=== PATIENT | female | born 1995 | race African-American/Black ===

== ENCOUNTER 2017-04-25 14:45 | Emergency (ER) | payer BC ==
[2017-04-25 14:46] VITALS: BP 145/65; PULSE 107; RESP 18; TEMP 98.3; O2SAT 99
--- NOTE | 2017-04-25 17:08 | PD ---
HPI Chief Complaint: Cold / Flu Symptoms Time Seen by Provider: 16:48 Travel History International Travel<30 days: No Contact w/Intl Traveler<30days: No Traveled to known affect area: No History of Present Illness HPI 21-year-old female presents to the ED for evaluation of 4 day history of sore throat, sinus congestion, rhinorrhea, nonproductive cough. Patient denies fevers, chills, nausea, vomiting, ear pain. She endorses many sick contacts, states that she goes to [facility]. Denies history of environmental allergies. She did not receive this years flu shot. He is a nonsmoker. She treated at home with cough drops and Benadryl with no improvement of symptoms. PFSH Past Medical History ?: Not LMP: 04/13/2017 Social History Tobacco Use: No Allergies-Medications (Allergen,Severity, Reaction): Coded Allergies: No Known Allergies (Unverified , 04/25/17) Review of Systems Except as stated in HPI: all other systems reviewed are Neg Physical Exam Narrative GENERAL: Well-nourished, well-developed female in no acute distress SKIN: Warm and dry. HEAD: Normocephalic. Atraumatic. EYES: No scleral icterus. No injection or drainage. PERRLA. EOMI. ENT: Pearly curtis tympanic membranes bilaterally. Nasal mucosa is moist, boggy. Oropharynx with mild posterior erythema. No edema or exudate. NECK: Supple, trachea midline. No JVD or lymphadenopathy. CARDIOVASCULAR: Regular rate and rhythm without murmurs, gallops, or rubs. RESPIRATORY: Breath sounds clear and equal bilaterally. No accessory muscle use. GASTROINTESTINAL: Abdomen soft, non-tender, nondistended. + Bowel sounds MUSCULOSKELETAL: No cyanosis, or edema. BACK: Nontender without obvious deformity. No CVA tenderness. Data Data Last Documented VS Vital Signs Date Time Temp Pulse Resp B/P (MAP) Pulse Ox O2 Delivery O2 Flow Rate FiO2 04/25/17 14:46 98.3 107 18 145/65 (91) 99 Orders Orders Influenzae A/B Antigen (04/25/17 15:00) Group A Rapid Strep Screen (04/25/17 15:00) Strep Culture (Group A) (04/25/17 16:10) MDM Medical Decision Making Medical Screen Exam Complete: Yes Emergency Medical Condition: Yes Differential Diagnosis Viral syndrome versus influenza versus pharyngitis versus strep pharyngitis versus other Narrative Course 21-year-old female presents to the ED for evaluation of 4 day history of sore throat, sinus congestion, rhinorrhea, nonproductive cough. Patient denies fevers, chills, nausea, vomiting, ear pain. She endorses many sick contacts, states that she goes to [facility]. Denies history of environmental allergies. She did not receive this years flu shot. She is a nonsmoker. Vitals reviewed. Physical exam reveals a nontoxic-appearing -Americans female in no acute distress. Mild posterior oropharyngeal erythema, chest CTAB. The exam is otherwise unremarkable. Rapid strep and flu swabs negative. This is viral syndrome. Patient's encouraged to continue with symptomatic treatment with OTC medications, follow-up with the on campus clinic or primary care provider. She is stable and discharged home. Diagnosis Primary Impression: Viral syndrome Referrals: Primary Care Physician Patient Instructions: General Instructions, Viral Syndrome (ED) Additional Instructions: Rest, hydrate. Push fluids such as sports drinks, Pedialyte, popsicles, clear broth. Continue with symptomatic treatment with OTC medications. I recommend a multi symptom medication containing a decongestant, such as Mucinex D. Alternating Motrin and Tylenol every 4-6 hours as needed for continued fever. Increase handwashing frequently to avoid the spread of the virus to other family members and the community. Disinfect commonly touched surfaces such as light switches, microwaves, remote controls. Replace toothbrush at the end of this illness. Follow-up with the on campus medical clinic or primary care provider. Return to the ED for any urgent or emergent medical condition. Disposition: 01 DISCHARGE HOME Condition: Stable Alissa Greenfield Apr 25, 2017 17:08
== END 2017-04-25 17:58 | disposition home or self-care (01) ==
LOC: NEPK 14:45
DX: B34.9 Viral infection, unspecified (principal)
CPT/HCPCS: 87081; 87804; 87880; 99283

== ENCOUNTER 2017-07-12 21:53 | Emergency (ER) | payer BC ==
[~2017-07-12] VITALS: Ht 165.1 cm; Wt 48.0 kg
[2017-07-12 22:46] VITALS: BP 117/70; PULSE 107; RESP 16; TEMP 99.8; O2SAT 100
--- NOTE | 2017-07-13 00:13 | PD ---
HPI Chief Complaint: Complaint Time Seen by Provider: 23:56 Travel History International Travel<30 days: No Contact w/Intl Traveler<30days: No Traveled to known affect area: No History of Present Illness HPI This patient complains of dysuria and urinary frequency. She has low-grade temperature. No flank pain or vomiting. Symptom severity is mild to moderate. PFSH Past Medical History Medical History: Denies Significant Hx Diminished Hearing: No Tetanus Vaccination: < 5 Years Influenza Vaccination: No ?: Not LMP: 07/06/2017 Past Surgical History Surgical History: No Previous Surgery Social History Alcohol Use: Yes (occasionally) Tobacco Use: No Substance Use: No Allergies-Medications (Allergen,Severity, Reaction): Coded Allergies: No Known Allergies (Unverified , 07/12/17) Review of Systems HENT: No: Headaches Cardiovascular: No: Chest Pain or Discomfort Respiratory: No: Cough Physical Exam Narrative GASTROINTESTINAL: Abdomen soft, non-tender, nondistended. Positive bowel sounds. No hepato-splenomegaly, or palpable masses. No guarding. SKIN: Focused skin assessment reveals no rash or ulcers. Skin is warm and dry. Palpation shows no induration or nodules. Data Data Last Documented VS Vital Signs Date Time Temp Pulse Resp B/P (MAP) Pulse Ox O2 Delivery O2 Flow Rate FiO2 07/12/17 22:46 99.8 107 16 117/70 (86) 100 Orders Orders Urinalysis - C+S If Indicated (07/13/17 00:00) Urine Culture (07/13/17 00:01) Labs Laboratory Tests Test 07/13/17 00:01 Urine Color YELLOW Urine Turbidity HAZY Urine pH 6.5 Urine Specific [place] 1.021 Urine Protein 100 mg/dL Urine Glucose (UA) NEG mg/dL Urine Ketones 10 mg/dL Urine Occult Blood MOD Urine Nitrite POS Urine Bilirubin NEG Urine Urobilinogen LESS THAN 2.0 MG/DL Urine Leukocyte Esterase LARGE Urine RBC 28 /hpf Urine WBC /hpf Urine Amorphous Sediment RARE Urine Bacteria OCC /hpf Urine Mucus MOD /lpf Microscopic Urinalysis Comment CULTURE INDICATED MDM Medical Decision Making Medical Screen Exam Complete: Yes Emergency Medical Condition: Yes Medical Record Reviewed: Yes Differential Diagnosis Cystitis, UTI, vaginitis Narrative Course I have reviewed the patient's electronic medical record. Urinalysis is consistent with infection. Bactrim written Diagnosis Primary Impression: UTI (urinary tract infection) Qualified Codes: N30.00 - Acute cystitis without hematuria Additional Instructions: The patient was advised to follow up with their physician and return if they worsen. Med/Other Pt SpecificInfo: Prescription(s) given Scripts Sulfamethoxazole-Trimethoprim (Bactrim DS) 800-160 Mg Tab 1 TAB PO BID for Infection, #10 TAB 0 Refills Prov: Steve Victoria MD 07/13/17 Disposition: 01 DISCHARGE HOME Condition: Stable Steve Victoria MD Jul 13, 2017 00:13
[2017-07-13 00:25] LABS: AMORPHOUS SEDIMENT, URINE RARE; BACTERIA, URINE OCC /hpf; BILIRUBIN, URINE NEG (NEG); BLOOD, URINE MOD (NEG); GLUCOSE,URINE NEG (NEG); KETONE, URINE 10 mg/dL (NEG); MUCUS URINE MOD /lpf (OCC); NITRITE,URINE POS (NEG); PH, URINE 6.5 (5.0-8.5); URINE COLOR YELLOW (YELLW/STRAW); URINE LEUKOCYTE ESTERASE LARGE (NEG)
[2017-07-13] MEDS ORDERED: BACT800T5 PO (00:39)
[2017-07-13] MEDS ORDERED: SULFAMETHOXAZOLE-TRIMETHOPRIM DS 800-160 MG TAB PO ONE (01:00)
== END 2017-07-13 01:06 | disposition home or self-care (01) ==
LOC: NEPD 21:53
DX: N30.00 Acute cystitis without hematuria (principal)
CPT/HCPCS: 81001; 87077; 87086; 87186; 99283